=== PATIENT | female | born 2000 | race Caucasian/White ===

== ENCOUNTER 2020-08-06 04:10 | Emergency (ER) | payer OTHER, SELFPAY ==
[2020-08-06] MEDS ORDERED: Ondansetron PF 4 MG/2 ML Vial ONE (04:56)
[2020-08-06] MEDS ORDERED: Ketorolac Tromethamine 30 MG/ML VIAL ONE (05:38)
== END 2020-08-06 06:30 | disposition home or self-care (01) ==
LOC: CSHERS 04:10
DX: R11.2 Nausea with vomiting, unspecified (principal); R19.7 Diarrhea, unspecified; D64.9 Anemia, unspecified
CPT/HCPCS: 96374; 96375; J1885; J2405